=== PATIENT | male | born 1995 | race Caucasian/White ===

== ENCOUNTER 2017-07-19 20:47 | Emergency (ER) | payer OTHER ==
[2017-07-19] MEDS ORDERED: Lidocaine 1% 20 ML MDV ONE (21:18)
[2017-07-19] MEDS ORDERED: Diphtheria,Pertussis(Acell),Tetanus Vaccine 0.5 ML SDV IM ONE (21:29)
[2017-07-19] MEDS ORDERED: Lidocaine 1% 20 ML MDV INJECT ONE (21:35)
[2017-07-19] MEDS ORDERED: Bacitracin/Neomycin/Polymyxin B Oint 0.9 GM U/D Packet ONE (21:37)
[2017-07-19] MEDS ORDERED: Amoxicillin/Clavulanate K 875-125 MG Tab ONE (21:44)
--- NOTE | 2017-07-19 21:45 | EDM.PDOC ---
ED HPI GENERAL MEDICAL PROBLEM - General Chief Complaint: General Stated Complaint: LEFT THUMB LACERATION Time Seen by Provider: 07/19/17 21:10 Source of Information: Reports: Patient History Limitations: Reports: No Limitations - History of Present Illness INITIAL COMMENTS - FREE TEXT/NARRATIVE: 22 YO WM presents to ER with 7cm laceration to base of left thumb. 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 Pt reports full ROM of left thumb and anfter applying pressure the bleeding was controlled. Pt can't remember his last DTaP. Onset Date: 07/19/17 Onset Time: 20:00 Location: Reports: Upper Extremity, Left Quality: Reports: Ache Severity: Mild Improves with: Reports: None Worsens with: Reports: None Associated Symptoms: Reports: No Other Symptoms - Related Data Allergies Allergy/AdvReac Type Severity Reaction Status Date / Time No Known Drug Allergies Allergy Cannot Verified 07/19/17 21:00 Remember Home Meds: Home Meds Amoxicillin/Potassium Clav [Augmentin 875-125 Tablet] 1 each PO BID #20 tablet 07/19/17 [Rx] traMADol [Ultram] 50 mg PO Q6H #10 tablet 07/19/17 [Rx] ED ROS GENERAL - Review of Systems Review Of Systems: See Below Constitutional: Reports: No Symptoms HEENT: Reports: No Symptoms Respiratory: Reports: No Symptoms Cardiovascular: Reports: No Symptoms Endocrine: Reports: No Symptoms GI/Abdominal: Reports: No Symptoms : Reports: No Symptoms Musculoskeletal: Reports: No Symptoms Skin: Reports: Wound (7cm left thumb laceration) Neurological: Reports: No Symptoms Psychiatric: Reports: No Symptoms Hematologic/Lymphatic: Reports: No Symptoms Immunologic: Reports: No Symptoms ED EXAM, GENERAL - Physical Exam Exam: See Below Exam Limited By: No Limitations General Appearance: Alert, WD/WN, No Apparent Distress Neck: Normal Inspection, Supple, Non-Tender, Full Range of Motion Respiratory/Chest: No Respiratory Distress, Lungs Clear, Normal Breath Sounds, No Accessory Muscle Use, Chest Non-Tender Cardiovascular: Normal Peripheral Pulses, Regular Rate, Rhythm, No Edema, No Gallop, No JVD, No Murmur, No Rub GI/Abdominal: Normal Bowel Sounds, Soft, Non-Tender, No Organomegaly, No Distention, No Abnormal Bruit, No Mass Back Exam: Normal Inspection, Full Range of Motion, NT Extremities: Normal Inspection, Normal Range of Motion, Non-Tender, Normal Capillary Refill, No Pedal Edema Neurological: Alert, Oriented, CN II-XII Intact, Normal Cognition, Normal Gait, Normal Reflexes, No Motor/Sensory Deficits Psychiatric: Normal Affect, Normal Mood Skin Exam: Wound/Incision (7cm laceration to base of left thumb) ED GENERAL MEDICAL PROCEDURES - Laceration/Wound Repair Left Hand Lac/wound length in cm: 7 Appearance: Superficial Distal NVT: Neuro & Vascular Intact Anesthetic Type: Local Local Anesthesia - Lidocaine (Xylocaine): 1% Plain Local Anesthetic Volume: Other (10cc) Skin Prep: Providone-Iodine (Betadine), Saline Exploration/Debridement/Repair: Wound Explored Closed with: Sutures Suture Size: 4-0 # of Sutures: 7 Sterile Dressing Applied: Nurse Tetanus Status Addressed: Yes Complications: No Course - Vital Signs Last Recorded V/S: Last Vital Signs Temp 37.6 C 07/19/17 21:04 Pulse 93 07/19/17 21:04 Resp 18 07/19/17 21:04 BP 146/82 H 07/19/17 21:04 Pulse Ox 98 07/19/17 21:04 - Orders/Labs/Meds Orders: Active Orders 24 hr Category Date Time Status Vaccines to be Administered [RC] PER UNIT ROUTINE Care 07/19/17 21:29 Active Meds: Medications Discontinued Medications Generic Name Dose Route Start Last Admin Trade Name Freq PRN Reason Stop Dose Admin Diphtheria/Tetanus/Acell Pertussis 0.5 ml 07/19/17 21:29 07/19/17 21:32 Adacel IM 07/19/17 21:30 0.5 ml .ONCE ONE Administration Lidocaine HCl Confirm 07/19/17 21:18 Xylocaine 1% Administered 07/19/17 21:19 Dose 20 ml .ROUTE .STK-MED ONE Lidocaine HCl 10 ml 07/19/17 21:35 Xylocaine 1% INJECT 07/19/17 21:36 ONETIME ONE Departure - Departure Time of Disposition: 21:49 Disposition: Home, Self-Care 01 Condition: Good Clinical Impression: Laceration of thumb Qualifiers: Encounter type: initial encounter Damage to nail status: without damage Foreign body presence: without foreign body Laterality: left Qualified Code(s): S61.012A - Laceration without foreign body of left thumb without damage to nail , initial encounter - Discharge Information Prescriptions: Amoxicillin/Potassium Clav [Augmentin 875-125 Tablet] 1 each PO BID #20 tablet traMADol [Ultram] 50 mg PO Q6H #10 tablet Instructions: Laceration Care, Adult, [id number] Referrals: PCP,None [Primary Care Provider] - Forms: ED Department Discharge Additional Instructions: 1. discharge home 2. wound care instructions 3. suture removal 10-14 days 4. follow up with PCP for further management and treatment 5. return to ER for worsening symptoms - My Orders Last 24 Hours: My Active Orders 07/19/17 21:29 Vaccines to be Administered [RC] PER UNIT ROUTINE - Assessment/Plan Last 24 Hours: My Active Orders 07/19/17 21:29 Vaccines to be Administered [RC] PER UNIT ROUTINE Assessment:: 1. 7cm laceration to base of left thumb Plan: 1. discharge home 2. wound care instructions 3. suture removal 10-14 days 4. follow up with PCP for further management and treatment 5. return to ER for worsening symptoms
[2017-07-19] MEDS ORDERED: Amoxicillin/Clavulanate K 875-125 MG Tab PO ONE (21:46)
[2017-07-19] MEDS ORDERED: Bacitracin/Neomycin/Polymyxin B Oint 0.9 GM U/D Packet TOP ONE (21:50)
== END 2017-07-19 22:00 | disposition home or self-care (01) ==
LOC: KA.ED 20:47
DX: S61.012A Laceration without foreign body of left thumb without damage to nail, initial encounter (principal); W26.0XXA Contact with knife, initial encounter; Z23 Encounter for immunization
CPT/HCPCS: 12002; 90471; 90715; 99282; A9270

== ENCOUNTER 2017-07-23 16:17 | Emergency (ER) | payer SELFPAY ==
[2017-07-23] MEDS ORDERED: Lidocaine 2% with EPINEPHrine 1:200,000 20 ML SDV ONE (16:54)
--- NOTE | 2017-07-23 16:54 | EDM.PDOC ---
ED HPI GENERAL MEDICAL PROBLEM - General Chief Complaint: Laceration Stated Complaint: laceration Time Seen by Provider: 07/23/17 16:45 Source of Information: Reports: Patient History Limitations: Reports: No Limitations - History of Present Illness INITIAL COMMENTS - FREE TEXT/NARRATIVE: Patient presents with laceration to dorsal right hand that happened about 45 minutes ago while he was helping someone; not an employer. They were jacking up an earthmover when it slipped and the scraper came down on his hand with it wedged between the scraper and a tire. It was quite forceful when it hit but pt has full AROM of hand and fingers with good sensation distally. Immediately distal to the laceration there is a small area of decreased sensation he says. He denies any head injury or other injuries. He denies any diabetes, immunocompromise or other medical problems. He is on a 10-day Augmentin for a laceration of the left thumb four days ago and had tetanus updated at that time as well. - Related Data Allergies Allergy/AdvReac Type Severity Reaction Status Date / Time No Known Drug Allergies Allergy Cannot Verified 07/23/17 16:29 Remember Home Meds: Home Meds Amoxicillin/Potassium Clav [Augmentin 875-125 Tablet] 1 each PO BID #20 tablet 07/19/17 [Rx] traMADol [Ultram] 50 mg PO Q6H #10 tablet 07/19/17 [Rx] Social & Family History - Tobacco Use Smoking Status *Q: Former Smoker Years of Tobacco use: 7 Packs/Tins Daily: 0.5 Used Tobacco, but Quit: Yes Month Tobacco Last Used: May - Caffeine Use Caffeine Use: Reports: Coffee - Alcohol Use Days Per Week of Alcohol Use: 7 Number of Drinks Per Day: 6 Total Drinks Per Week: 42 Date of Last Drink: 07/22/17 Time of Last Drink: 11:59 - Recreational Drug Use Recreational Drug Use: No ED ROS GENERAL - Review of Systems Review Of Systems: ROS reveals no pertinent complaints other than HPI. ED EXAM, SKIN/RASH Exam: See Below Exam Limited By: No Limitations General Appearance: Alert, WD/WN, No Apparent Distress Eye Exam: Bilateral Eye: EOMI, Normal Inspection, PERRL Ears: Normal External Exam, Hearing Grossly Normal Nose: Normal Inspection, No Blood Throat/Mouth: Normal Lips, Normal Voice, No Airway Compromise Head: Atraumatic, Normocephalic Neck: Normal Inspection, Full Range of Motion Respiratory/Chest: No Respiratory Distress, Lungs Clear, Normal Breath Sounds, No Accessory Muscle Use Cardiovascular: Regular Rate, Rhythm, No Murmur GI/Abdominal: No Distention Extremities: Normal Range of Motion, Normal Capillary Refill, Other (There is a 4.0 transverse laceration on the proximal dorsum of right hand that is through the skin layers but not into tendons or major vessels or nerves. Pt has full AROM of hand and fingers both flexion and extension against resistance with 5/5 strength. Sensation is intact throughout fingers and partially diminished only in middle dorsum of hand distal to the laceration.) Neurological: Alert, Oriented, Normal Cognition, No Motor/Sensory Deficits Psychiatric: Normal Affect, Normal Mood Skin: Warm, Dry, Normal Color, No Rash ED SKIN PROCEDURES - Laceration/Wound Repair Right Dorsal Hand Lac/Wound length In cm: 3.5 Appearance: Subcutaneous, Linear, Mildly Contaminated Distal NVT: Neuro & Vascular Intact, No Tendon Injury Anesthetic Type: Local Local Anesthesia - Lidocaine (Xylocaine): 1% with EPI Local Anesthetic Volume: 5cc Skin Prep: Chlorhexidine (Hibiciens) (15 minute soak), Saline Saline Irrigation (cc's): 120 Exploration/Debridement/Repair: Wound Explored, In a Bloodless Field, Explored to Base Closed with: Sutures Suture Size: 4-0 # of Sutures: 8 Suture Type: Nylon, Simple Suture Size: 4-0 (vicryl) # of Sutures: 1 (running) Repaired with: Vicryl Sterile Dressing Applied: Nurse Tetanus Status Addressed: Yes Complications: No Course - Orders/Labs/Meds Orders: Active Orders 24 hr Category Date Time Status Hand 2V Rt [CR] Stat Exams 07/23/17 16:27 Ordered - Re-Assessments/Exams Free Text/Narrative Re-Assessment/Exam: 07/23/17 17:36 Right hand laceration cleaned and repaired as described after discussion. Sterile technique was used throughout. Patient tolerated the procedure well and was discharged in stable condition. Departure - Departure Time of Disposition: 17:29 Disposition: Home, Self-Care 01 Condition: Good Clinical Impression: Laceration of right hand without foreign body Qualifiers: Encounter type: initial encounter Qualified Code(s): S61.411A - Laceration without foreign body of right hand, initial encounter - Discharge Information Instructions: Laceration Care, Adult, [id number], Stitches, Liv, or Adhesive Wound Closure, [id number] Referrals: PCP,None [Primary Care Provider] - Additional Instructions: 1. Keep wound clean and dry; except may wash in shower or under fresh running water. No swimming or tub bathing until sutures are removed. 2. Continue your Augmentin as directed. 3. Follow up with your PCP in ten days for suture removal. Recheck sooner if any sign of infection such as increasing redness, swelling or fever. 4. You may use your hand for light duties as tolerated. - My Orders Last 24 Hours: My Active Orders 07/23/17 16:27 Hand 2V Rt [CR] Stat - Assessment/Plan Last 24 Hours: My Active Orders 07/23/17 16:27 Hand 2V Rt [CR] Stat
[2017-07-23] MEDS ORDERED: Bacitracin/Neomycin/Polymyxin B Oint 0.9 GM U/D Packet ONE (17:21)
== END 2017-07-23 17:50 | disposition home or self-care (01) ==
LOC: KA.ED 16:17
DX: S61.411A Laceration without foreign body of right hand, initial encounter (principal); Z87.891 Personal history of nicotine dependence; W20.8XXA Other cause of strike by thrown, projected or falling object, initial encounter
CPT/HCPCS: 12002; 73120-RT; 99283

== ENCOUNTER 2019-06-26 13:37 | Emergency (ER) | payer SELFPAY ==
--- NOTE | 2019-06-26 14:25 | EDM.PDOC ---
ED HPI GENERAL MEDICAL PROBLEM - General Chief Complaint: General Stated Complaint: Dental pain Time Seen by Provider: 06/26/19 14:15 Source of Information: Reports: Patient History Limitations: Reports: No Limitations - History of Present Illness INITIAL COMMENTS - FREE TEXT/NARRATIVE: 24 YO WM presents to ER complaining of intermittent lower jaw pain x 2 weeks. Pt reports pain has gotten so severe that he has felt lightheaded. Pt denies chest pain, shortness of breath, nausea/vomiting or diaphoresis. Pt denies any jaw or gum swelling or fever/chills. Pt has an appointment with dentist next week 06/30/2019 and is here for pain medication prescription until he can follow up with dentist. Duration: Week(s): (2) Quality: Reports: Ache Severity: Moderate Improves with: Reports: None Worsens with: Reports: None Associated Symptoms: Reports: No Other Symptoms Treatments [employer]: Reports: Acetaminophen, Aspirin, NSAIDS Right Lower Jaw Pain Score (Numeric/FACES): 8 - Related Data Allergies Allergy/AdvReac Type Severity Reaction Status Date / Time No Known Drug Allergies Allergy Cannot Verified 06/26/19 13:58 Remember Home Meds: Home Meds Ibuprofen [Motrin] 600 mg PO Q6H #20 tab 06/26/19 [Rx] Penicillin V Potassium 500 mg PO Q6HR #40 tab 06/26/19 [Rx] traMADol [Ultram] 50 mg PO Q6H PRN #12 tab 06/26/19 [Rx] Past Medical History - Past Health History Medical/Surgical History: Denies Medical/Surgical History Social & Family History - Tobacco Use Smoking Status *Q: Current Some Day Smoker Years of Tobacco use: 12 Packs/Tins Daily: 1 Second Hand Smoke Exposure: Yes - Caffeine Use Caffeine Use: Reports: Coffee, Soda - Alcohol Use Days Per Week of Alcohol Use: 7 Number of Drinks Per Day: 12 Total Drinks Per Week: 84 - Recreational Drug Use Recreational Drug Use: No ED ROS GENERAL - Review of Systems Review Of Systems: See Below Constitutional: Reports: No Symptoms HEENT: Reports: Dental Pain Respiratory: Reports: No Symptoms Cardiovascular: Reports: Lightheadedness Endocrine: Reports: No Symptoms GI/Abdominal: Reports: No Symptoms : Reports: No Symptoms Musculoskeletal: Reports: No Symptoms Skin: Reports: No Symptoms Neurological: Reports: No Symptoms Psychiatric: Reports: No Symptoms Hematologic/Lymphatic: Reports: No Symptoms Immunologic: Reports: No Symptoms ED EXAM, GENERAL - Physical Exam Exam: See Below Exam Limited By: No Limitations General Appearance: Alert, WD/WN, No Apparent Distress Eye Exam: Bilateral Eye: EOMI, PERRL Nose: Normal Inspection, Normal Mucosa, No Blood Throat/Mouth: Normal Inspection, Normal Lips, Normal Gums, Normal Oropharynx, Normal Voice, No Airway Compromise, Other (dental decay of 2nd molars in mandible bilaterally) Head: Atraumatic, Normocephalic Neck: Normal Inspection, Supple, Non-Tender, Full Range of Motion Respiratory/Chest: No Respiratory Distress, Lungs Clear, Normal Breath Sounds, No Accessory Muscle Use, Chest Non-Tender Cardiovascular: Normal Peripheral Pulses, Regular Rate, Rhythm, No Edema, No Gallop, No JVD, No Murmur, No Rub GI/Abdominal: Normal Bowel Sounds, Soft, Non-Tender, No Organomegaly, No Distention, No Abnormal Bruit, No Mass Back Exam: Normal Inspection, Full Range of Motion, NT Extremities: Normal Inspection, Normal Range of Motion, Non-Tender, Normal Capillary Refill, No Pedal Edema Neurological: Alert, Oriented, CN II-XII Intact, Normal Cognition, Normal Gait, Normal Reflexes, No Motor/Sensory Deficits Psychiatric: Normal Affect, Normal Mood Skin Exam: Warm, Dry, Intact, Normal Color, No Rash Lymphatic: No Adenopathy EKG INTERPRETATION EKG Date: 06/26/19 Time: 14:11 Rhythm: NSR Rate (Beats/Min): 86 [place]: Normal P-Wave: Present QRS: Normal ST-T: Normal QT: Normal Comparison: NA - No Prior EKG Course - Vital Signs Last Recorded V/S: Last Vital Signs Temp 36.9 C 06/26/19 13:45 Pulse 84 06/26/19 13:45 Resp 18 06/26/19 13:45 BP 161/95 H 06/26/19 13:45 Pulse Ox 98 06/26/19 13:45 - Orders/Labs/Meds Orders: Active Orders 24 hr Category Date Time Status EKG Documentation Completion [RC] ASDIRECTED Care 06/26/19 14:02 Active EKG 12 Lead [EK] Routine Ther 06/26/19 14:02 Ordered Departure - Departure Time of Disposition: 14:46 Disposition: Home, Self-Care 01 Condition: Good Clinical Impression: Pain, dental - Discharge Information Prescriptions: Penicillin V Potassium 500 mg PO Q6HR #40 tab Ibuprofen [Motrin] 600 mg PO Q6H #20 tab traMADol [Ultram] 50 mg PO Q6H PRN #12 tab PRN Reason: Pain Instructions: Impacted Molar Referrals: Emily Richard MD [Primary Care Provider] - Forms: ED Department Discharge Additional Instructions: 1. discharge home 2. pen vee k 500mg QID x 10 days 3. motrin 600mg every 6 hours x 5 days 4. ultram 50mg 1-2 Q4-6 PRN pain 5. follow up with dentist as scheduled 06/30/2019 6. return to ER for worsening symptoms - My Orders Last 24 Hours: My Active Orders 06/26/19 14:02 EKG Documentation Completion [RC] ASDIRECTED EKG 12 Lead [EK] Routine - Assessment/Plan Last 24 Hours: My Active Orders 06/26/19 14:02 EKG Documentation Completion [RC] ASDIRECTED EKG 12 Lead [EK] Routine Assessment:: 1. toothache- dental caries Plan: 1. discharge home 2. pen vee k 500mg QID x 10 days 3. motrin 600mg every 6 hours x 5 days 4. ultram 50mg 1-2 Q4-6 PRN pain 5. follow up with dentist as scheduled 06/30/2019 6. return to ER for worsening symptoms
== END 2019-06-26 14:50 | disposition home or self-care (01) ==
LOC: KA.ED 13:37
DX: K08.89 Other specified disorders of teeth and supporting structures (principal); F17.210 Nicotine dependence, cigarettes, uncomplicated
CPT/HCPCS: 93005; 99283-25

== ENCOUNTER 2024-01-20 21:25 | Emergency (ER) | payer BC | END 2024-01-20 22:50 | disposition home or self-care (01) | LOC: KA.ED 21:25 | DX: S52.232A Displaced oblique fracture of shaft of left ulna, initial encounter for closed fracture (principal); W52.XXXA Crushed, pushed or stepped on by crowd or human stampede, initial encounter | CPT/HCPCS: 29105; 73090-LT; 73130-LT; 99283-25; 99284 ==

== ENCOUNTER 2024-06-28 22:17 | Emergency (ER) | payer BC | END 2024-06-28 23:00 | disposition home or self-care (01) | LOC: KA.ED 22:17 | DX: S82.431A Displaced oblique fracture of shaft of right fibula, initial encounter for closed fracture (principal); V80.018A Animal-rider injured by fall from or being thrown from other animal in noncollision accident, initial encounter | CPT/HCPCS: 73590-RT; 99283 ==